=== PATIENT | female | born 2000 | race Caucasian/White ===

== ENCOUNTER 2020-02-05 09:18 | Outpatient (CLI) | payer OTHER, SELFPAY ==
--- NOTE | ~2020-02-05 | US_ITS ---
US breast RT limited INDICATION: Palpable right breast abnormality TECHNIQUE: Dedicated targeted right breast ultrasound COMPARISON: No prior studies for comparison. FINDINGS: The right breast is composed of normal heterogeneous echotexture without focal solid or cys tic mass. IMPRESSION: 1: Normal limited right breast ultrasound. BI-RADS CATEGORY 1 - NEGATIVE Reviewed, dictated and finalized at location A.
== END 2020-02-05 09:19 | disposition home or self-care (01) ==
LOC: ANHIMG 09:26
PROVIDERS: PCP Pediatrics; Visit Provider Nurse Practitioner Obstetrics & Gynecology
DX: N63.10 Unspecified lump in the right breast, unspecified quadrant (principal)
CPT/HCPCS: 76642

== ENCOUNTER 2021-04-20 12:27 | Emergency (ER) | payer OTHER, SELFPAY ==
[2021-04-20 12:49] VITALS: BP 110/73; PULSE 105; RESP 18; TEMP 36.2; O2SAT 100
[2021-04-20 13:19] LABS: Basophils Absolute Auto 0.1 K/mm3 (0.0-0.1); Basophils Percent Auto 0.5 % (0.2-1.2); Hematocrit 39.8 % (37.0-47.0); Hemoglobin 13.6 g/dL (12.0-15.0); Immature Granulocyte Absolute 0.06 K/mm3 (0.00-0.031); Immature Granulocyte Percent A 0.5 % (0-0.5); Lymphocytes Percent Auto 14.2 % (18.3-44.2); Mean Corpuscular HGB Conc 34.2 g/dl (32-36); Mean Corpuscular Hemoglobin 31.3 pg (26-34); Mean Corpuscular Volume 91.7 fl (80-100); Mean Platelet Volume 10.1 fl (7.4-10.4); Monocytes Absolute Auto 0.7 K/mm3 (0.1-0.6); Monocytes Percent Auto 5.9 % (2.6-8.5); Neutrophils Absolute Auto 9.4 K/mm3 (1.3-6.7); Neutrophils Percent Auto 78.9 % (45.5-73.1); Platelet Count Result 320 k/mm3 (150-375); Red Blood Count 4.34 M/mm3 (4.2-5.4); Red Cell Distribution Width 11.9 % (11.5-14.5)
[2021-04-20 13:30] LABS: Alanine Aminotransferase 16 U/L (4-35); Alkaline Phosphatase 55 U/L (38-126); Anion Gap 14 mmol/L (8-16); Aspartate Amino Transferase 23 U/L (14-36); Bilirubin,Total 0.8 mg/dL (0.2-1.3); Blood Urea Nitrogen 9 mg/dL (7-17); Carbon Dioxide 24 mmol/L (22-30); Chloride 99 mmol/L (98-107); Estimated CRCL calculation 140 ml/min; Estimated Glomerular Filt Rate > 60; Glucose 91 mg/dL (65-110); Lipase 26 U/L (23-300); Potassium 3.7 mmol/L (3.4-5.0); Sodium 137 mmol/L (137-145)
--- NOTE | 2021-04-20 13:37 | ED.NAVMDI ---
HPI - Nausea/Vomiting/Diarrhea General Chief complaint: Nausea/Vomiting/Diarrhea Stated complaint: Vomiting Time Seen by Provider: 04/20/21 13:37 History of Present Illness HPI Narrative: 20 yo female at approximately 6 weeks presents to the ED for nausea and vomiting. She reports that she has had nausea and been unable to keep anything down for 4 days. No abdominal pain, dysuria, hematuria, vaginal bleeding, discharge. She plans to have an next week. Related Data Allergies Allergy/AdvReac Type Severity Reaction Status Date / Time No Known Allergies Allergy Verified 04/20/21 12:52 Review of Systems Review of Systems: All systems reviewed & are unremarkable except as noted in HPI and below Constitutional: Constitutional: Denies fever(s) Cardiovascular: Cardiovascular: Denies chest pain Respiratory: Respiratory: Denies dyspnea Gastrointestinal: Gastrointestinal: Denies abdominal pain Genitourinary: Genitourinary: Denies abnormal vaginal bleeding, Denies hematuria, Denies dysuria, Denies flank pain, Denies urinary incontinence and Denies vaginal discharge Musculoskeletal: Musculoskeletal: Denies back pain Neurologic: Reports dizziness and Denies weakness REPLACED BY [facility] Social History Social History (Updated 04/20/21 @ 18:21 by Den Fuentes MD) Smoking status: Never smoker Exam Const: General: healthy appearing, no acute distress and alert Orientation/consciousness: patient oriented x3 HENMT: Head: normal to inspection Resp: Effort & Inspection: normal respiratory effort Auscultation: clear to auscultation bilaterally Cardio: Rate: regular rate Rhythm: regular rhythm GI: Inspection: non-distended GI Palp: Yes Soft to palpation and No Tenderness to palpation present (GI) Skin: General skin exam: normal color Neuro: General: patient oriented x3 and moves all extremities Speech: normal speech Gait exam (Neuro): Normal gait present Extrem: General: normal to inspection Course Vital Signs Vital signs: Vital Signs Temperature 36.2 C L 04/20/21 12:49 Pulse Rate 105 H 04/20/21 12:49 Respiratory Rate 18 04/20/21 12:49 Blood Pressure 110/73 04/20/21 12:49 Pulse Oximetry 100 04/20/21 12:49 Temperature 36.2 C L 04/20/21 12:49 Pulse Rate 72 04/20/21 16:08 Respiratory Rate 16 04/20/21 16:08 Blood Pressure 101/54 L 04/20/21 16:08 Pulse Oximetry 99 04/20/21 16:08 MDM - Nausea/Vomiting/Diarrhea MDM Narrative Medical decision making narrative: tolerating PO after treatment. Differential Diagnosis Differential diagnosis: Likely gastroenteritis and other ( ) Medical Records Attestation: I reviewed the patient's medical records. Lab Data Attestation: I reviewed the patient's lab results. Result diagrams: 04/20/21 13:07 04/20/21 13:07 Labs: Lab Results 04/20/21 04/20/21 04/20/21 Range/Units 13:07 13:07 14:29 WBC 12.0 H (4.5-10.0) K/mm3 RBC 4.34 (4.2-5.4) M/mm3 Hgb 13.6 (12.0-15.0) g/dL Hct 39.8 (37.0-47.0) % MCV 91.7 (80-100) fl MCH 31.3 (26-34) pg MCHC 34.2 (32-36) g/dl RDW 11.9 (11.5-14.5) % Plt Count 320 (150-375) k/mm3 MPV 10.1 (7.4-10.4) fl Immature Gran % (Auto) 0.5 (0-0.5) % Neut % (Auto) 78.9 H (45.5-73.1) % Lymph % (Auto) 14.2 L (18.3-44.2) % Bates % (Auto) 5.9 (2.6-8.5) % Eos % (Auto) 0.0 (0-4.4) % Baso % (Auto) 0.5 (0.2-1.2) % Lymph # (Auto) 1.70 (0.9-3.2) K/mm3 Bates # (Auto) 0.7 H (0.1-0.6) K/mm3 Eos # (Auto) 0.0 (0-0.3) K/mm3 Baso # (Auto) 0.1 (0.0-0.1) K/mm3 Abs Immat Gran (auto) 0.06 H (0.00-0.031) K/mm3 Absolute Neuts (auto) 9.4 H (1.3-6.7) K/mm3 Absolute Nucleated RBC 0.0 (0.0-0.012) K/mm3 Nucleated RBC % 0.0 (0.0-0.2) % Sodium 137 (137-145) mmol/L Potassium 3.7 (3.4-5.0) mmol/L Chloride 99 (98-107) mmol/L Carbon Dioxide 24 (22-30) mmol/L Anion
[2021-04-20] MEDS: DEXTROSE 5%/0.45% SOD CHL 1,000 ML 1000 ML IV CONT (14:14)
[2021-04-20] MEDS: ONDANSETRON INJ 4 MG/2 ML VIAL IV PUSH (14:14)
[2021-04-20] MEDS: PANTOPRAZOLE SODIUM IV 40 MG VIAL IV PUSH (14:14)
[2021-04-20 14:39] LABS: Add Urine Microscopic? YES; Appearance Urine Cloudy (Clear); Bacteria Urine Trace /hpf; Bilirubin Urine Negative (Negative); Blood Urine Negative (Negative); Color Urine Yellow (Yellow); Glucose Urine UA Negative (Negative); Ketones Urine 2+ mg/dL (Negative); Leukocyte Esterase Ur 3+ LEU/UL (Negative); Mucus Urine Heavy /lpf; Nitrate Urine Negative (Negative); Protein Urine 1+ mg/dL (Negative); Specific Grav Ur 1.026 (1.001-1.035); Squamous Epithelial Cell Urine Many /hpf (Few); Urobilinogen Urine Negative mg/dL (<2.0); WBC Urine 16-20 /hpf
[2021-04-20 16:08] VITALS: BP 101/54; PULSE 72; RESP 16; O2SAT 99
== END 2021-04-20 16:09 | disposition home or self-care (01) ==
PROVIDERS: Emergency Provider Emergency Medicine; PCP Family Medicine
DX: O21.9 Vomiting of pregnancy, unspecified (principal); Z3A.01 Less than 8 weeks gestation of pregnancy
CPT/HCPCS: 36415; 80053; 81001; 81025; 83690; 85025; 87077; 87086; 87088; 96361; 96374; 96375; 99284; C9113; J2405

== ENCOUNTER 2022-09-21 01:47 | Inpatient (IN) | payer OTHER, SELFPAY ==
[2022-09-21] VITALS (21 sets, daily range): BP systolic 71–156; BP diastolic 48–117; PULSE 71–108; RESP 16–18; TEMP 36.8–37.1; O2SAT 97–99; BMI 33.7
--- NOTE | 2022-09-21 02:25 | LDADM ---
This patient, Alem Braun, was admitted to Labor/Delivery/Recovery 103 on 09/21/22 at 01:47. Plans for labor, pain management and were discussed with patient. Patient/family oriented to hospital policies and general routines including ID bracelet, bed and alarms, visiting hours, pain management, procedures, bathroom and other care routines, personal items, smoking policy, room service/diet and guest tray routines, infant security routines, and visiting hours. Patient/Family are encouraged to report perceived risks to care and to ask questions if they do not understand what they are told or what they should do. See OBIX for further documentation.
[2022-09-21 03:06] LABS: Basophils Absolute Auto 0.1 K/mm3 (0.0-0.1); Basophils Percent Auto 0.4 % (0.2-1.2); Eosinophils Percent Auto 0.2 % (0-4.4); Hematocrit 36.7 % (37.0-47.0); Hemoglobin 12.1 g/dL (12.0-15.0); Immature Granulocyte Absolute 0.17 K/mm3 (0.00-0.031); Immature Granulocyte Percent A 1.2 % (0-0.5); Lymphocytes Absolute Auto 1.55 K/mm3 (0.9-3.2); Lymphocytes Percent Auto 11.2 % (18.3-44.2); Mean Corpuscular Hemoglobin 29.7 pg (26-34); Mean Corpuscular Volume 90.2 fl (80-100); Mean Platelet Volume 11.3 fl (7.4-10.4); Monocytes Percent Auto 7.2 % (2.6-8.5); Neutrophils Percent Auto 79.8 % (45.5-73.1); Platelet Count Result 213 k/mm3 (150-375); Red Blood Count 4.07 M/mm3 (4.2-5.4); Red Cell Distribution Width 13.2 % (11.5-14.5); White Blood Count 13.8 K/mm3 (4.5-10.0)
--- NOTE | 2022-09-21 03:19 | WPDHPUPDATE1 ---
History and Physical Update Update Date/Time: 09/21/22 03:19 This patient is a 22-year-old 1 term who presents in labor with advanced cervical dilation. Artificial rupture of membranes was performed. clear fluid. 8-9/ 90%/ -1. Reassuring heart tones. Expectant management. History and Physical has been reviewed, including an updated exam of the patient. There are NO changes in the patient's condition. Risks, benefits, and alternatives have been discussed and questions answered. Patient agrees to proceed with procedure.
[2022-09-21] MEDS: OXYTOCIN 30 UNITS/NS 500 ML 30 UNITS/500 ML BAG 999 UNITS IV CONT (04:15)
--- NOTE | 2022-09-21 04:17 | PM.OBPRVD ---
OB - Delivery Note Procedure Delivery date: 09/21/22 Procedure: Delivery monitor: External FHT and External Uterine Route of delivery: Episiotomy description: None Laceration Description: Periurethral Quantitative Blood Loss (ml): 75 Anesthesia type: None Disposition: Floor Baby Date of : 09/21/22 Time of : 04:07 Weeks of gestation at delivery: 40 Weight (pounds): 8 Weight (ounces): 3 Placenta delivery description: Spontaneous Cord Vessel Description: 3 Vessels score one minute: 7 score five minutes: 9
[2022-09-21 07:29] LABS: Rapid Plasma Reagin Non-Reactive (NonReactive)
[2022-09-21] MEDS: DOCUSATE SODIUM 100 MG CAPSULE PO ×2 (09:45→17:15)
[2022-09-21] MEDS: IBUPROFEN 600 MG TABLET PO ×2 (09:45→17:15)
[2022-09-21] MEDS: MULTIVIT/MIN/PREN/FOL AC/IRON TABLET 1 TAB PO (09:45)
--- NOTE | 2022-09-21 14:42 | PC.NURSE ---
[id number] Introductions were made, then consulted with patient to assess needs related to . Mother led the conversation with her?plans to feed?her infant and the?experience so far. Resources provided for inpatient mom/baby guide. Mother voiced understanding of information and requested assistance. Mother works well with her with encouragement and education. Encouraged understanding of the benefits of skin to skin (unwrapping and placing vertically on her chest), massage touch, stimulating infant with position changes, responsive feeding and how to watch for early feeding signs, frequency of feeding on demand about every 8-12 times in 24 hours (every 2-3 hours), milk production, duration of feeding, signs of adequate intake/output and how to record on the feeding sheet. Patient demonstrated understanding of hand expression and finger fed drops of colostrum into her 's mouth. Infant is sleepy, reluctant and placed skin to skin. Mother tells RN more information of the presence of the nipple everter and nipple shield in her room. Reviewed good handwashing, cleaning the nipple shield and application. Discussed with mom the nipple shield precautions, possible complications associated with the risks and benefits. Reviewed practicing with a nipple shield, then without and how to protect the milk supply and production. Mother will call for assistance in the practice and we briefly discussed pumping for stimulating milk production if doesn't latch. [id number] Purposefully rounded to consult with patient on . Mother states she breastfed her infant for 40 minutes with the nipple shield. Reminded mother to practice with the nipple shield and without to teach infant to optimally latch effectively . Mother states she will call for the next . [id number] Consulted with mom after requested. Mother is skin to skin with her infant. Reviewed positioning and ear, shoulder, hip alignment, supporting the breast, asymmetrical latch (off-center), and leading with the chin with a big open side gape. latched optimally to the left breast in football position. Education given to mother of how to visualize suck/swallow ratios and listen for drinking at the breast. Infant was able to maintain latch without discomfort to mother without the nipple shield. began to make clicking noise. was detached and reattached with a deeper latch. Mother cautioned with regards to pulling her breast away from infant's nose. Supportive father of baby instructed how to assist with mother with reassurance of having the chin buried, nose near the breast and assist with mothers needs while . Nipple care reviewed with optimal latch and good positioning. Reminding mother of comfort measures of healing with a warm and wet washcloth to rinse breast, then leave open to air-dry as needed. Reviewed good handwashing when or touching the breast/nipples to prevent infection. effective breastfed with no pain to mother and no misshaped nipple intermittently swallowing. Resources used to facilitate learning were used with the tool, mom and baby guide. Parents voiced understanding of responsive feedings, stimulating with skin to skin, hand expressed colostrum, massage touch, talking to infant to encourage if it has been 2 -3 hours since the start of the last , to call if infant does not latch or there is discomfort with . Reported to the primary RN.
[2022-09-21] MEDS: WITCH HAZEL 40 PADS 1 PAD TOPICAL (17:15)
[2022-09-21] MEDS: BENZOCAINE 20% AER SPR (*SP) 56 GM CAN 1 SPRAY TOPICAL (17:15)
[2022-09-22 05:37] LABS: Hematocrit 34.9 % (37.0-47.0); Hemoglobin 11.3 g/dL (12.0-15.0)
[2022-09-22 09:00] VITALS: PULSE 85; RESP 16; O2SAT 97
[2022-09-22 09:05] VITALS: BP 104/67; PULSE 63; RESP 16; TEMP 36.9; O2SAT 98
[2022-09-22] MEDS: IBUPROFEN 600 MG TABLET PO (11:30)
[2022-09-22] MEDS: MULTIVIT/MIN/PREN/FOL AC/IRON TABLET 1 TAB PO (11:30)
[2022-09-22] MEDS: DOCUSATE SODIUM 100 MG CAPSULE PO (11:30)
--- NOTE | 2022-09-22 13:25 | PC.NURSE ---
1143- Mother requested a consult. Infant is sleepy, not and wrapped up in a blanket. Encouraged understanding of the benefits of skin to skin (unwrapping and placing vertically on her chest), massage touch, responsive feeding and how to watch for early feeding signs. Mother voiced understanding of responsive feedings, stimulating with skin to skin and to call if does not latch or there is discomfort with . [id number] Purposefully rounded to encouraged wakefulness with changing positioning and massage touch. Assisted mother with to the breast with and without the nipple shield. Using the nipple shield as intended by latching with the nipple shield, then after getting a sucking rhythm taking the shield off and latching to the breast. After attempting with the nipple shield once mother was able to latch her infant to the breast with assistance. maintained latch without pain to mother. Reviewed positioning and ear, shoulder, hip alignment, supporting the breast, asymmetrical latch (off-center), and leading with the chin with a big, open wide gape. latched optimally to the left breast in football position. Education given to mother of how to visualize suck/swallow ratios, drinking at the breast and milk production. Nipple care reviewed with optimal latch and good positioning. Reminding mother of comfort measures of healing with a warm and wet washcloth to rinse breast, then leave open to air-dry as needed. Reviewed good handwashing when or touching the breast/nipples to prevent infection. Resources used to facilitate learning were used with the visual handouts, tool, mom and baby guide. Mother voiced understanding of responsive feedings, stimulating with skin to skin, hand expressed colostrum, massage touch, talking to to encourage if it has been 2 -3 hours since the start of the last , to call if infant does not latch or there is discomfort with . Reported to the primary RN.
[2022-09-22 20:00] VITALS: BP 100/62; PULSE 88; RESP 16; TEMP 36.7
--- NOTE | 2022-09-23 08:13 | PM.OBDSVD ---
DS: Admitting Diagnosis Discharge Date 09/23/22 Admitting Diagnosis term OB - DS: Summary OB Procedures : None OB Procedures Intrapartum: Spontaneous Vag Delivery OB Procedures: : None Time Spent with Patient Time attestation: Total time spent providing and/or coordinating discharge services: Discharge Plan Discharge Discharging Clinician: Sophia Rain Patient Disposition: Home, Self-Care Activity: pelvic rest Diet: regular Patient Instructions: Antibiotic Form Stand Alone Forms: General Discharge Information Follow-up/Referrals: Sophia Rain MD [Physician] - Discharge Medications: Continued ondansetron HCl [Zofran] 4 mg tablet 4 mg PO Q6H PRN (Reason: nausea and vomiting) Qty: 10 0RF Date of admission: 09/21/22 01:47 Primary Care Provider: Anthony,Panfilo Espinoza Admitting Provider: Sophia Rain Attending physician on admission: Sophia Rain Condition: Stable
[2022-09-23 08:55] VITALS: BP 102/62; PULSE 87; RESP 16; TEMP 37; O2SAT 99
--- NOTE | 2022-09-23 10:21 | PC.NURSE ---
Patient to view the discharge video Mother & Baby Care, The First Two Weeks online. Patient was given the opportunity and encouraged to ask questions. Patient verbalized understanding of information shared and has been given the mother/baby guide for home reference.
[2022-09-25 08:52] VITALS: BP 100/61; PULSE 89; RESP 20; TEMP 36.9; O2SAT 99
== END 2022-09-23 11:37 | disposition home or self-care (01) | DRG 560 ==
LOC: ANHLDR 07:03 → ANHOB2 07:19
PROVIDERS: Admitting Provider Obstetrics & Gynecology; PCP Family Medicine; Visit Provider Obstetrics & Gynecology
DX: O71.82 Other specified trauma to perineum and vulva (principal); Z37.0 Single live birth; Z3A.40 40 weeks gestation of pregnancy
CPT/HCPCS: 36415; 85014; 85018; 85025; 86592; 86850; 86900; 86901; A9270; J2590

== ENCOUNTER 2025-05-28 10:02 | Emergency (ER) | payer OTHER, SELFPAY ==
[2025-05-28 10:18] VITALS: BP 135/78; PULSE 116; RESP 18; TEMP 36.4; O2SAT 99
--- OUTSIDE RECORDS SUMMARY | 2025-05-28 10:33 | XMS_ITS | Clinical Summary ---
Author Organization [facility] at the [facility] Address [address] [place] [address] Care Team Providers Care Framing Consultant Name Role Phone Panfilo Cruz MD Primary Care Provider [phone] Allergies No known active allergies Medications ergocalciferol (VITAMIN D) 50,000 unit capsule Take 1 capsule (50,000 Units total) by mouth once a week 12 capsule 4 Active levonorgestreL (Mirena) IUD 1 each Active tretinoin (RETIN-A) 0.05 % cream Apply topically Active Active Problems Problem Noted Date Diagnosed Date Vitamin D deficiency 01/16/2024 Class 1 obesity without seri ous comorbidity with body mass index (BMI) of 32.0 to 32.9 in adult 01/16/2024 Resolved Problems Problem Noted Date Diagnosed Date Resolved Date Family hx of melanoma 08/20/20162020 Immunizations Immunization Administration Dates Next Due DTaP 02/15/2005, 1,1999,2 000,1999 HPV, Quadrivalent 12/02/2015,06/30/2015,04/22/20 15 Hep A, Pediatric 12/02/2015,04/22/2015 Hep B / HiB 01/06/2001,1999,1999 Hep B, Adolescent or Pediatric 01/06/2001,1999,1999 IPV 02/15/2005, 1,1999, 999 Influenza, Unspecified 11/14/2023(Deferr ed: Patient Refused),07/03/2023(Deferred: Patient Refused),07/03/2023(Deferred: Patient Refused),07/03/2023(Deferred: Patient Refused),07/03/2023(Deferred: Patient Refused),03/03/2021(Deferred: Patient Refused) MMR 02/15/2005,10/12/2000 Meningococcal MCV4P (Menactra) 12/02/2015,2013 Pneumococcal Conjugate 7-Valent 10/12/2000,07/08,03/29/2000 Pneumococcal Conjugate, Unspecified 10/12/2000,1 ,03/29/2000 Tdap 05/07/2011 Surgical History Surgery Date Site/Laterality Comments TONSILLECTOMY WISDOM TOOTH EXTRACTION SURGERY OF LIP TONSILECTOMY, ADENOIDECTOMY, BILATERAL MYRINGOTOMY AND TUBES Family History Medical History Relation Name Comments Diabetes Maternal Grandfather Relation Name Status Comments Father Alive Maternal Grandfather Mother Alive Social History Tobacco Use Types Packs/Day Years Used Date Smoking Tobacco: Never Passive Smoke Exposure: Never Smokeless Tobacco: Never Tobacco Cessation:Counseling Given: Not Answered PHQ-2 Answer Date Recorded PHQ-2 Total Score (If total score is 3 or more points, staff should administer the PHQ-9) 0 11/14/2023 Personal Safety Answer Date Recorded Getting School Help Needed Not on file 10/03 Comments Unknown Sex and Gender Information Value Date Recorded Sex Assigned at Not on file Legal Sex Female 2:08 AM [employer]ICE [employer] [facility] Gender Identity Not on file Sexual Orientation Not on file Obstetrics History Last Filed Vital Signs Vital Sign Reading Time Taken Comments Blood Pressure 108/68 02/23/2024 9:58 AM CDT Pulse 92 02/23/2024 9:58 AM CDT Temperature 37 C (98.6 F) 02/23/2024 9:58 AM CDT Respiratory Rate 18 02/23/2024 9:58 AM CDT Oxygen Saturation 98% 02/23/2024 9:58 AM CDT Inhaled Oxygen Concentration - - Weight 85.3 kg (188 lb) 06/21/2024 8:29 AM CDT Height 160 cm (5' 3) 06/21/2024 8:29 AM CDT Body Mass Index 33.3 06/21/2024 8:29 AM CDT Plan of Treatment Health Maintenance Due Date Last Done Comments Cervical Cancer Screening 1999 Varicella Vaccines (1 of 2 - 13+ 2-dose series) 2012 DTaP/Tdap/Td Vaccine (7 - Td or Tdap) 05/07/2021 05/07/2011, 02/15/2005, 10/12/2000, Additional history exists Depression Screening 11/14/2024 11/14/2023, 03/03/20 21 Regular Well Visit/Exam 18-64 02/06/2025, 02/07/2024, 03/03/2021 Pneumococcal vaccine <65 Completed 001, 10/12/2000, 07/08/2000, Additional history exists Hepatitis B Screening Completed 01/06/2001 , 01/06/2001, 1999, Additional history exists HPV Vaccines Completed 12/02/2015, 06/04, 04/22/2015 Hepatitis C Screening Completed 03/21/2024 Influenza Vaccine Discontinued Procedures Procedure Name Priority Date/Time Associated Diagnosis Comments HEPATITIS C ANTIBODY Routine 03/21/2024 8:26 AM CDT Need for hepatitis C screening test from Last 3 Months or Most Recently Relevant to Health Maintenance Results * Hepatitis C antibody Blood (03/21/2024 8:26 AM CDT) Hep C Ab Nonreactive Nonreactive Comment: Antibodies to HCV not detected. Does NOT exclude the possibility of recent exposure to HCV. Current interpretive data was last revised on 22 Interpretive Data Nonreactive: Antibodies to HCV not detected. Does NOT exclude the possibility of recent exposure to HCV. Equivocal: Equivocal for HCV antibodies. Supplemental molecular testing will be automatically performed to determine infection status in accordance with current CDC screening recommendations. Reactive: Positive for HCV antibodies. This may represent current or past HCV infection. Supplemental molecular testing will be automatically performed to determine current infection status in accordance with current CDC screening recommendations. Interpretive data was last revised on 2019. Blood 03/21/2024 8:26 AM CDT 03/21/2024 8:59 AM CDT us Regina Burden TRAINING AND DEVELOPMENT DIRECTOR LAB MICROBIOLOGY - GENERAL OR DERABLES Final Result [facility] [address] Department [place] [address] from Last 3 Months or Most Recently Relevant to Health Maintenance Insurance Care Teams Framing Consultant Relationship Specialty Start Date End Date Panfilo Cruz MD PCP - General Family Medicine 02/23/21
--- OUTSIDE RECORDS SUMMARY | 2025-05-28 10:33 | XMS_ITS | Clinical Summary ---
Author Organization [facility] Address [address] [place] [address] Care Team Providers Care Pulp Bleacher Name Role Phone Perlita Martínez MD Primary Care Provider [phone] Source Comments [facility],non-owned Affiliates and Associated Physician Practices is amultiple site organization consisting of ambulatory clinics and hospital sitesin [place], [place], [place] and [place]. This disclosure is being madepursuant to the Care Everywhere program and may not contain all information available regarding this patient. Last updated 18.[facility] Allergies No known active allergies Medications * Be aware that medications may not be up to date on this document. Alwaysverify current medications with the patient. tretinoin (RETIN-A) 0.05 % cream Pea sized amount to entire face at night. 30 days supply. 20 g 11 9 Active ampicillin (PRINCIPEN) 500 MG capsule Take 500 mg bid 60 capsule 11 9 Active clindamycin (CLEOCIN) 1 % lotion Use to areas prone to breakouts qam. 30 DS 60 mL 11 9 Active benzoyl peroxide (BENZAC) 5 % wash Use as wash 1-2 times daily. 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 Acne vulgaris 08/20/2016 Family hx of melanoma 08/20/2016 Ear mass 04/22/2015 BMI (body mass index), pedia tric, 85% to less than 95% for age 0805/07/2011 Resolved Problems Problem Noted Date Diagnosed Date Resolved Date Rash 11/25/2018 12/23/2018 Immunizations Immunization Administration Dates Next Due DTaP VACCINE IM (6wk-6yrs) 02/15/2005,,1999,11/02,1999 HEP A PEDS 2 DOSE 12/02/2015,04/22/2015 HEP B VACCINE, PED/ADOL 01/06/2001,1999, Human Papilloma Virus Sandeep valent Vaccine 12/02/2015,06/30/2015,04/22/2015 MENINGOCOCCAL ACWY (MCV4P) VAC IM 12/02/2015,12/2013 MMR 02/15/2005,10/12/2000 PNEUMOCOCCAL CONJ, PEDS 10/12/2000,07/08/2000, POLIO IPV 02/15/2005, 1,1999,08/18 TDAP (7yrs+) 05/07/2011 Social History Tobacco Use Types Packs/Day Years Used Date Smoking Tobacco: Never Smokeless Tobacco: Never Alcohol Use Standard Drinks/Week Comments Not Asked 0 (1 standard drink = 0.6 oz pur e alcohol) Comments No Sex and Gender Information Value Date Recorded Sex Assigned at Not on file Legal Sex Female 6:56 AM RN DISEASE MANAGEMENT Gender Identity Not on file Sexual Orientation Not on file Last Filed Vital Signs Vital Sign Reading Time Taken Comments Blood Pressure 108/70 06/21/2016 1:40 PM CDT Pulse 92 06/21/2016 1:40 PM CDT Temperature 39.1 C (102.3 F) 01/04/2017 10:57 AM CDT Respiratory Rate - - Oxygen Saturation - - Inhaled Oxygen Concentration - - Weight 64.9 kg (143 lb) 01/04/2017 10:57 AM CDT Height 160 cm (5' 3) 06/21/2016 1:40 PM CDT Body Mass Index - - Plan of Treatment Health Maintenance Due Date Last Done Comments HIV SCREENING 2014 CHLAMYDIA/GONORRHEA SCREENING 2015 HEPATITIS C SCREENING 06/15/2017 PAP SMEAR 2020 DTAP/TDAP/TD VACCINES (7 - Td or Tdap) 05/07/2021 05/07/2011, 02/15/2005, 10/12/2000, Additional history exists COVID-19 VACCINE (2023- season) 2024 DEPRESSION SCREENING 10/03/2024 INFLUENZA VACCINE (#1) 2025 ZOSTER VACCINE (1 of 2) 2049 PNEUMOCOCCAL VACCINE Completed 10/12/2000, 07/08/2000, 03/29/2000 HEPATITIS B VACCINE Completed 01/06/2001, 1999, 1999 HPV VACCINE Completed 12/02/2015, 06/04, 04/22/2015 MENINGOCOCCAL GROUPS A/C/Y/W VACCINE Completed 12/02/2015, 11/05/2013 HIB VACCINE Aged Out No longer eligi ble based on patient's age to complete this topic MENINGOCOCCAL (Group B) VACCINE SHARED DECISION-MAKING Aged Out No longer eligible based on patient's age to complete this topic Goals Goal Patient Goal Type Associated Problems Recent Progress Patient-Stated? Author Exercise 3X per week (30 min per time) Exercise Not on track( 015 10:47 AM CDT) No Katelynn Still, SHABBIR Use safety retraint in car Lifestyle On track( 016 1:45 PM CDT) No Katelynn Still, SHABBIR Insurance MEDICAID [facility] Care Teams Pulp Bleacher Relationship Specialty Start Date End Date Perlita Martínez MD PCP - General 03/07/18
[2025-05-28] MEDS: SODIUM CHLORIDE 0.9% IV 1,000 ML 999 ML IV CONT ×2 (11:04→11:17)
[2025-05-28] MEDS: METOCLOPRAMIDE HCL INJ 10 MG/2 ML VIAL IV PUSH (11:18)
[2025-05-28 11:19] LABS: Hematocrit 40.1 % (37.0-47.0); Hemoglobin 13.7 g/dL (12.0-15.0); Immature Granulocyte Percent A 0.4 % (0-0.5); Lymphocytes Absolute Auto 1.36 K/mm3 (0.9-3.2); Mean Corpuscular HGB Conc 34.2 g/dl (32-36); Mean Corpuscular Hemoglobin 30.3 pg (26-34); Mean Corpuscular Volume 88.7 fl (80-100); Nucleated Red Blood Cells Absolute Auto 0.000 K/mm3 (0.0-0.012); Nucleated Red Blood Cells Perc 0.0 % (0.0-0.2); Platelet Count Result 288 k/mm3 (150-375); Red Blood Count 4.52 M/mm3 (4.2-5.4); White Blood Count 10.0 K/mm3 (4.5-10.0)
[2025-05-28] MEDS: FAMOTIDINE 20 MG/2 ML VIAL IV PUSH (11:23)
[2025-05-28 11:38] LABS: Alanine Aminotransferase 32 U/L (6-35); Albumin Level 4.4 g/dL (3.5-5.1); Alkaline Phosphatase 68 U/L (38-126); Anion Gap 16 mmol/L (4-12); Aspartate Amino Transferase 24 U/L (14-36); Bilirubin,Total 1.1 mg/dL (0.2-1.3); Blood Urea Nitrogen 6 mg/dL (7-17); Calcium 9.5 mg/dL (8.4-10.2); Carbon Dioxide 16 mmol/L (22-30); Chloride 104 mmol/L (98-107); Estimated CRCL calculation 158 ml/min; Estimated Glomerular Filt Rate > 60; Glucose 87 mg/dL (65-110); Lipase 47 U/L (23-300); Magnesium 1.8 mg/dL (1.6-2.3); Potassium 3.5 mmol/L (3.4-5.0); Sodium 136 mmol/L (137-145); Total Protein 8.1 g/dL (6.3-8.2)
[2025-05-28 11:44] LABS: Add Urine Microscopic? YES; Appearance Urine Cloudy (Clear); Glucose Urine UA Negative (Negative); Leukocyte Esterase Ur 1+ LEU/UL (Negative); Need Manual Microscopic Reviewed; Nitrate Urine Negative (Negative); Non Pathogenic Casts >20; Specific Grav Ur 1.033 (1.001-1.035)
--- OUTSIDE RECORDS SUMMARY | 2025-05-28 11:59 | XMS_ITS | Clinical Summary ---
Author Organization [facility] at the [facility] Office Center Address [address] [place] [address] Care Team Providers Care Scanning Clerk Name Role Phone Panfilo Cruz MD Primary Care Provider [phone] Allergies No known active allergies Medications ergocalciferol [...] on file Legal Sex Female 2:08 AM DIRECTOR SOFTWARE Gender Identity Not on file Sexual Orientation [...] 03/21/2024 8:59 AM CDT us Regina Burden WRAPPER LAYER LAB MICROBIOLOGY - GENERAL OR DERABLES Final Result [facility] [address] Department [place] [address] from Last 3 Months or Most Recently Relevant to Health Maintenance Insurance Care Teams Scanning Clerk Relationship Specialty Start Date End Date Panfilo Cruz MD PCP - General Family Medicine 02/23/21
--- OUTSIDE RECORDS SUMMARY | 2025-05-28 11:59 | XMS_ITS | Clinical Summary ---
Author Organization [facility] Address [address] [place] [address] Care Team Providers Care Profile Saw Operator Name Role Phone Perlita Martínez MD Primary Care Provider Source Comments [facility],non-owned Affiliates and Associated Physician Practices is amultiple site organization consisting of ambulatory clinics and hospital sitesin [place], [place], [place] and [place]. This disclosure is being madepursuant to the Care Everywhere program and may not contain all information available regarding this patient. Last updated 18.[facility] Allergies No known active allergies Medications * [...] on file Legal Sex Female 6:56 AM TEACHER ASSISTANT Gender Identity Not on file Sexual Orientation [...] CDT) No Katelynn Still, SHABBIR Insurance MEDICAID [facility] Care Teams Profile Saw Operator Relationship Specialty Start Date End Date Perlita Martínez MD PCP - General 03/07/18
--- NOTE | 2025-05-28 12:08 | ED_ITS ---
HPI - Nausea/Vomiting/Diarrhea General Chief complaint: Nausea/Vomiting/Diarrhea Stated complaint: n/v, 11 weeks preg Time Seen by Provider: 05/28/25 10:29 Source: patient Mode of arrival: ambulatory Limitations: no limitations History of Present Illness HPI Narrative: Patient is a 24-year-old female who presents the ED with report of nausea and vomiting. Patient is currently 11 weeks gestation[address] Rain and Lelo Glover with [facility]. Has had confirmed IUP. Had issues with nausea and vomiting throughout her last , but states it has been much worse this . Reports she is unable to keep down any food or drink, feels very weak and dehydrated. Has been taking Zofran without improvement. Also complains of acid reflux. Denies significant abdominal pain, vaginal bleeding. Required IV fluids a few days ago for hydration. Related Data Allergies Allergy/AdvReac Type Severity Reaction Status Date / Time No Known Allergies Allergy Verified 08/24/22 12:44 Review of Systems 2 Review of Systems: All systems reviewed & are unremarkable except as noted in HPI. All systems reviewed & are unremarkable except as noted in HPI and below PMFSH Family History Family History Other No pertinent family history Social History Social History Smoking status: Never smoker Substance use: never Lack of Transportation: No Lack of Food: Never True Current Housing: I Have Housing Concerned About Future Housing: No Difficulty Paying Gas/Electric Bills: No Difficulty Paying for Meds: No Currently Unemployed: YES Education: High School Diploma/GED Difficulty w/ Childcare or Family Care: No Spiritual care concerns: No Exam 2 Narrative: GENERAL: Mildly ill appearing, well-nourished, non-toxic, in no acute distress. HEAD: Normocephalic, atraumatic. RESPIRATORY: Airway patent, respirations nonlabored. Clear to auscultation bilaterally, no rales, rhonchi, wheezing. CARDIOVASCULAR: Tachycardic with regular rhythm without murmurs, rubs, or gallops. ABDOMINAL: Soft, no tenderness throughout abdomen, nondistended. Normoactive BS. MUSCULOSKELETAL: Moves all extremities. No gross deformities. SKIN: Warm, dry, normal color. NEURO: A&O X3. Speech clear. PSYCHIATRIC: Appropriate mood and affect. Normal interaction. Course Vital Signs Vital signs: Vital Signs Temperature 97.6 F 05/28/25 10:18 Pulse Rate 116 H 05/28/25 10:18 Respiratory Rate 18 05/28/25 10:18 Blood Pressure 135/78 05/28/25 10:18 Pulse Oximetry 99 05/28/25 10:18 Oxygen Delivery Room Air 05/28/25 10:18 Temperature 97.6 F 05/28/25 10:18 Pulse Rate 84 05/28/25 15:41 Respiratory Rate 18 05/28/25 15:41 Blood Pressure 126/74 05/28/25 15:41 Pulse Oximetry 97 05/28/25 15:41 Oxygen Delivery Room Air 05/28/25 10:18 MDM - Nausea/Vomiting/Diarrhea MDM Narrative Medical decision making narrative: Patient presented to ED with nausea, vomiting, difficulty maintaining p.o. intake, currently 11 weeks gestation. Tachycardic upon arrival, mildly ill- appearing. Afebrile here. Denying abdominal pain or vaginal bleeding. Cbc with blood cell count of 10.0. H&H is stable. CMP with evidence of dehydration. Bicarb 16, anion gap of 16. Kidney function is stable. Otherwise stable electrolytes. Normal LFTs and lipase. UA with 4+ ketones, 11-20 WBC, but moderate squamous cells. Sent for culture. Patient denies any urinary symptoms. Likely contaminated catch. Patient given 2 L of fluid, Benadryl, Reglan, Pepcid. On re-evaluation, she is feeling much better. Able to tolerate p.o. intake. Would feels ready for discharge at this time. heart tones were evaluated and within normal range. I did also utilized bedside ultrasound myself to visualize fetus, good movement, heart flicker. Patient felt very reassured by this. I discussed case with NEO Davison nutrition counselor for snow [place] with outpatient f/u in office. Patient has an appointment next week. Will d/c with Phenergan suppositories, Reglan to try at home. She did not report improvement with Zofran. Advised to stay as hydrated as possible. Given strict return precautions. She is in agreement with plan, feels comfortable going home at this time. Vital signs stable and improved at time of D/C. Medical Records Attestation: I reviewed the patient's medical records. Lab Data Attestation: I reviewed the patient's lab results. 05/28/25 11:07 05/28/25 11:07 Labs: Lab Results 05/28/25 Range/Units 11:07 WBC 10.0 (4.5-10.0) K/mm3 RBC 4.52 (4.2-5.4) M/mm3 Hgb 13.7 (12.0-15.0) g/dL Hct 40.1 (37.0-47.0) % MCV 88.7 (80-100) fl MCH 30.3 (26-34) pg MCHC 34.2 (32-36) g/dl RDW 12.6 (11.5-14.5) % Plt Count 288 (150-375) k/mm3 MPV 10.4 (7.4-10.4) fl Immature Gran % (Auto) 0.4 (0-0.5) % Neut % (Auto) 80.2 H (45.5-73.1) % Lymph % (Auto) 13.6 L (18.3-44.2) % [place] % (Auto) 5.3 (2.6-8.5) % Eos % (Auto) 0.1 (0-4.4) % Baso % (Auto) 0.4 (0.2-1.2) % Lymph # (Auto) 1.36 (0.9-3.2) K/mm3 [place] # (Auto) 0.5 (0.1-0.6) K/mm3 Eos # (Auto) 0.0 (0-0.3) K/mm3 Baso # (Auto) 0.0 (0.0-0.1) K/mm3 Abs Immat Gran (auto) 0.04 H (0.00-0.031) K/mm3 Absolute Neuts (auto) 8.1 H (1.3-6.7) K/mm3 Absolute Nucleated RBC 0.000 (0.0-0.012) K/mm3 Nucleated RBC % 0.0 (0.0-0.2) % Sodium 136 L (137-145) mmol/L Potassium 3.5 (3.4-5.0) mmol/L Chloride 104 (98-107) mmol/L Carbon Dioxide 16 L (22-30) mmol/L Anion Gap 16 H (4-12) mmol/L BUN 6 L (7-17) mg/dL Creatinine 0.45 L (0.7-1.0) mg/dL Estim Creat Clear Calc 158 ml/min Estimated GFR > 60 (59 - ) Glucose 87 (65-110) mg/dL Calcium 9.5 (8.4-10.2) mg/dL Magnesium 1.8 (1.6-2.3) mg/dL Total Bilirubin 1.1 (0.2-1.3) mg/dL AST 24 (14-36) U/L ALT 32 (6-35) U/L Alkaline Phosphatase 68 (38-126) U/L Total Protein 8.1 (6.3-8.2) g/dL Albumin 4.4 (3.5-5.1) g/dL Lipase 47 (23-300) U/L Urine Color Dark yellow (Yellow) Urine Appearance Cloudy H (Clear) Urine pH 6.0 (5.0-9.0) Ur Specific [place] 1.033 (1.001-1.035) Urine Protein 2+ H (Negative) mg/dL Urine Glucose (UA) Negative (Negative) mg/dL Urine Ketones 4+ H (Negative) mg/dL Ur Blood (Man) Negative (Negative) Urine Nitrate Negative (Negative) Urine Bilirubin 1+ H (Negative) Urine Urobilinogen 1.0 (<2.0) mg/dL Add Ur Microanalysis Reviewed Leukocyte Esterase Rfl 1+ H (Negative) CHLOE/UL Urine RBC 3-5 H (0-2) /hpf Urine WBC 11-20 H (0-3) /hpf Ur Squamous Epith Cells Moderate (Few) /hpf Urine Bacteria Rare /hpf Urine Casts >20 Discharge Plan Discharge Clinical Impression: 11 weeks gestation of , Nausea and vomiting during Patient Disposition: Home Condition: Stable Instructions: Antibiotic Form, Dehydration (ED), Clear Liquid Diet (ED), Acute Nausea and Vomiting (ED) Additional Instructions: Continue nausea medications as needed. Increase fluid intake as much as possible. Recommend electrolyte rich fluids, gatorade, pedialyte, body armour. Recommend clear liquids or bland diet until symptoms improve, such as bananas, rice, applesauce, toast, or crackers. Follow up closely with your OBGYN for further evaluation. Return to the ED if you experience worsening or severe symptoms, unable to keep down food or drink, severe pain, persistent fevers, vaginal bleeding, vomiting blood, or any other symptoms of concern. Patient Language: Bulgarian Prescriptions: New metoclopramide HCl 5 mg tablet 5 mg PO Q6H PRN (Reason: nausea and vomiting) Qty: 15 0RF promethazine 25 mg suppository 25 mg RECTAL Q6H PRN (Reason: nausea and vomiting) Qty: 12 0RF No Action ondansetron HCl [Zofran] 4 mg tablet 4 mg PO Q6H PRN (Reason: nausea and vomiting) Qty: 10 0RF Follow-up/Referrals: Antonio Rain MD [Physician, MARINE ENGINEERING CONSULTANT] UNKNOWN,DOCTOR [Primary Care Provider] Time of Disposition: 15:28
[2025-05-28 15:41] VITALS: BP 126/74; PULSE 84; RESP 18; O2SAT 97
== END 2025-05-28 15:43 | disposition home or self-care (01) ==
PROVIDERS: Emergency Provider Physician Assistant
DX: O21.0 Mild hyperemesis gravidarum (principal); Z3A.11 11 weeks gestation of pregnancy
CPT/HCPCS: 36415; 80053; 81001; 83690; 83735; 85025; 87086; 96361; 96374; 96375; 99284; J1200; J2765; J7030